=== PATIENT | male | born 1945 | race Caucasian/White ===

== ENCOUNTER 2016-08-18 07:21 | Day surgery (SDC) | payer MEDICARE, OTHER ==
[2016-08-18] MEDS ORDERED: FENTANYL 250 MCG/5 ML AMP IV PRN (07:24)
[2016-08-18] MEDS ORDERED: MIDAZOLAM HCL 5 MG/5 ML VIAL IV PRN (07:24)
[2016-08-18] MEDS ORDERED: LACTATED RINGERS 1,000 ML IV SCH (07:30)
== END 2016-08-18 09:53 | disposition home or self-care (01) ==
LOC: SDC 07:21
PROVIDERS: ATTEND Internal Medicine Gastroenterology
DX: Z12.11 Encounter for screening for malignant neoplasm of colon (principal); Z86.010 Personal history of colon polyps; K57.30 Diverticulosis of large intestine without perforation or abscess without bleeding; E03.9 Hypothyroidism, unspecified; I48.91 Unspecified atrial fibrillation; K21.9 Gastro-esophageal reflux disease without esophagitis; Z87.891 Personal history of nicotine dependence